=== PATIENT | female | born 1975 | race Caucasian/White ===

== ENCOUNTER 2018-11-26 15:35 | Emergency (ER) | payer BC ==
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
[2018-11-26] MEDS ORDERED: ACETAMINOPHEN 325 MG TABLET ONE (17:21)
[2018-11-26 17:52] VITALS: TEMP 97.9
[2018-11-26 17:53] VITALS: O2SAT 99
[2018-11-26 17:54] VITALS: BP 114/80
== END 2018-11-26 17:29 | disposition home or self-care (01) ==
LOC: ER 15:35
DX: S09.90XA Unspecified injury of head, initial encounter (principal); M54.2 Cervicalgia; V49.40XA Driver injured in collision with unspecified motor vehicles in traffic accident, initial encounter
CPT/HCPCS: 70450; 72125

== ENCOUNTER 2018-11-27 14:46 | Observation (INO) | payer BC ==
[2018-11-27 15:47] VITALS: BMI 27.4
[2018-11-27] MEDS ORDERED: ALBUTEROL 2.5 MG/3 ML NEB SOL IH PRN (16:15)
[2018-11-27 16:22] LABS: Absolute Lymphocytes (CBC) 1.7 K/uL (0.7-4.9); Absolute Monocytes 0.5 K/uL (0.1-1.3); Absolute Neutrophil 4.7 K/uL (1.8-8.0); Basophils % 0.6 % (0-1.3); Eosinophils % 2.4 % (0-4.4); Hematocrit 35.6 % (36.0-45.0); Lymphocytes % 23.9 % (15.3-44.8); MPV 7.8 fL (7.6-11.3); Monocytes % 7.2 % (3.3-12.3); RBC Red Blood Cell Count 3.95 M/uL (3.86-4.86)
[2018-11-27 16:27] LABS: Protime INR 0.97
[2018-11-27] MEDS ORDERED: POLYETHYL GLY 3350 17 GM/DOSE PO PRN (17:00)
[2018-11-27] MEDS ORDERED: ACETAMINOPHEN 325 MG TABLET PO PRN (17:00)
[2018-11-27] MEDS ORDERED: ONDANSETRON 4 MG (ODT) TAB PO PRN (17:00)
[2018-11-27] MEDS ORDERED: ONDANSETRON 4 MG/2 ML VIAL IV PRN (17:00)
[2018-11-27] MEDS ORDERED: LOPERAMIDE HCL 2 MG CAPSULE PO PRN (17:00)
[2018-11-27] MEDS ORDERED: NACHLORIDE 0.45% 1,000 ML IV SCH (17:00)
[2018-11-27] MEDS ORDERED: DIPHENHYDRAMINE 25 MG TAB/CAP PO PRN (17:00)
[2018-11-27 17:03] LABS: Magnesium 2.3 mg/dL (1.8-2.4); Phosphorus 2.9 mg/dL (2.5-4.9); Potassium 3.7 mmol/L (3.5-5.1); Thyroid Stimulating Hormone 1.11 uIU/mL (0.360-3.740)
[2018-11-27 17:43] LABS: Urine Appearance CLOUDY; Urine Bilirubin NEGATIVE (NEG); Urine Blood NEGATIVE (NEG); Urine Color YELLOW; Urine Glucose NEGATIVE (NEG); Urine Protein NEGATIVE (NEG); Urine Specific Gravity 1.015 (1.005-1.030)
[2018-11-27 17:45] LABS: Urine Microscopic Reflex ORDER UMIC
[2018-11-27] MEDS: CEFOXITIN/SWI 1gm 1 GM/10 ML SYR IVP SCH (18:06)
[2018-11-27 18:24] LABS: Urine Amorphous Sediment 1+ /HPF (NONE SEEN); Urine Bacteria <20 /HPF (<20); Urine Culture Reflex Order NOT NEEDED; Urine RBC <5 /HPF (NONE SEEN)
--- NOTE | 2018-11-27 19:48 | RAD REPORT ---
EXAM DESCRIPTION: CT - Abdomen Pelvis W Contrast - 11/27/2018 7:36 pm CLINICAL HISTORY: Abdominal pain. COMPARISON: None. TECHNIQUE: Computed axial tomography of the abdomen and pelvis was obtained. 100 cc Isovue-300 is ad ministered intravenously. Oral contrast was given. All CT scans are performed using dose optimization technique as appropriate and may include automated exposure control or mA/KV adjustment according to patient size. FINDINGS: The liver, spleen, pancreas, adrenals and kidneys appear unremarkable. The appendix is normal caliber. There is no evidence of diverticulitis Cholecystectomy A small amount of free fluid within the pelvis IMPRESSION: Small amount of free fluid within the pelvis may be physiologic or secondary to inflamm ation
[2018-11-27] MEDS ORDERED: LEVALBUTEROL 1.25 MG/3 ML NEB IH SCH (20:00)
[2018-11-27] MEDS ORDERED: IPRATROPIUM BROM 0.5MG/2.5ML IH SCH (20:00)
--- NOTE | 2018-11-27 20:18 | RAD REPORT ---
EXAM DESCRIPTION: Yajaira Mendez (2 Views)11/27/2018 7:46 pm CLINICAL HISTORY: Abdominal pain COMPARISON: 2015 FINDINGS: The lungs appear clear of acute infiltrate. The heart is normal size IMPRESSION: No acute abnormalities displayed
[2018-11-27 20:42] LABS: UR MICROALBUMIN < 0.5 mg/dL (< 1.9)
[2018-11-28] MEDS: CEFOXITIN/SWI 1gm 1 GM/10 ML SYR IVP SCH ×3 (01:16→16:52)
[2018-11-28 05:38] LABS: Absolute Lymphocytes (CBC) 1.9 K/uL (0.7-4.9); Absolute Monocytes 0.5 K/uL (0.1-1.3); Absolute Neutrophil 3.1 K/uL (1.8-8.0); Basophils % 0.6 % (0-1.3); Eosinophils % 3.2 % (0-4.4); Hematocrit 32.2 % (36.0-45.0); Lymphocytes % 32.4 % (15.3-44.8); MPV 8.1 fL (7.6-11.3); Monocytes % 9.2 % (3.3-12.3); RBC Red Blood Cell Count 3.59 M/uL (3.86-4.86)
[2018-11-28 05:58] LABS: Magnesium 2.2 mg/dL (1.8-2.4); Potassium 3.9 mmol/L (3.5-5.1)
--- NOTE | 2018-11-28 07:13 | EKG ---
Test Date: 2018-11-27 Test Time: 17:51:10 Electronics Repair Technician: MISAEL MEASUREMENT RESULTS: Intervals: Rate: 65 MO: 182 QRSD: 82 QT: 428 QTc: 445 Spivey: P: 62 MO: 182 QRS: 35 T: 58 INTERPRETIVE STATEMENTS: Normal sinus rhythm Normal ECG Compared to ECG 03/27/2015 11:08:33 No significant changes Electronically Signed On 11-28-18 07:12:26 CDT by Vu Patel
[2018-11-28 09:35] VITALS: O2SAT 97
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
[2018-11-28 17:12] VITALS: BP 108/59; TEMP 97.8
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
[2018-12-02 11:27] LABS: Vitamin D 1,25-Dihydroxy Total 76 pg/mL (18-72); Vitamin D,1,25-OH2, D2 <8 pg/mL
== END 2018-11-28 17:50 | disposition home or self-care (01) ==
LOC: 2ND 15:26
PROVIDERS: ADMIT Internal Medicine; ATTEND Internal Medicine
DX: R10.31 Right lower quadrant pain (principal); E04.1 Nontoxic single thyroid nodule
CPT/HCPCS: 36415; 71046; 74177; 80048; 81003; 81015; 82043; 82570; 82607; 82652; 83735; 84100; 84443; 85025; 85610; 85730; 93005; G0378; Q9967